=== PATIENT | male | born 1995 | race African-American/Black ===

== ENCOUNTER 2018-02-08 16:44 | Emergency (ER) | payer SELFPAY ==
--- NOTE | 2018-02-08 18:46 | ER ---
Nurse's Notes [facility] Name: Nazanin Burnett Age: 22 yrs Sex: Male : 1995 Arrival Date: 02/08/2018 Time: 16:49 Bed 17 Private MD: Diagnosis: Encounter for screening for infections with a predominantly sexual mode of transmission Presentation: 02/08 16:57 Presenting complaint: Patient states: i have abd pain (L lower quadrant) that started hj 12 noon today; last BM was yesterday; denies fever and chills; denies nausea and vomiting;. Transition of care: patient was not received from another setting of care. Onset of symptoms was February 08, 2018. Care prior to arrival: None. 16:57 Method Of Arrival: Ambulatory 16:57 Acuity: EDUARDO 3 hj Triage Assessment: 16:59 General: Appears in no apparent distress. uncomfortable, Behavior is calm, cooperative, hj appropriate for age. Pain: Complains of pain in left lower quadrant. GI: Reports lower abdominal pain. Historical: - Allergies: 16:59 No Known Allergies; hj - Home Meds: 16:59 None [Active]; hj - PMHx: 16:59 None; hj - PSHx: 16:59 None; hj - Immunization history:: Adult Immunizations up to date. - Social history:: Smoking status: Patient/guardian denies using tobacco. Screenin:30 Abuse screen: Denies threats or abuse. Denies injuries from another. Nutritional ch screening: No deficits noted. Tuberculosis screening: No symptoms or risk factors identified. Fall Risk None identified. Assessment: 16:59 GI: Bowel sounds present X 4 quads. Abd is soft Abdomen is tender to palpation. hj 19:32 Reassessment: Patient appears in no apparent distress at this time. Patient and/or ch family updated on plan of care and expected duration. Pain level reassessed. Patient is alert, oriented x 3, equal unlabored respirations, skin warm/dry/pink. General: Appears in no apparent distress. comfortable, Behavior is calm, cooperative, appropriate for age. Neuro: Level of Consciousness is awake, alert, obeys commands, Oriented to person, place, time, situation, Sales Marketing Manager are equal bilaterally. Respiratory: Airway is patent Respiratory effort is even, unlabored, Breath sounds are clear bilaterally. : Reports discharge, from penis that is. Derm: Skin is pink, warm \T\ dry. Musculoskeletal: Circulation, motion, and sensation intact. Capillary refill < 3 seconds, in bilateral fingers. toes. Range of motion: intact in all extremities. Vital Signs: 16:59 BP 155 / 67; Pulse 71; Resp 18; Temp 97.5(TE); Pulse Ox 96% on R/A; Weight 91.63 kg; hj Height 5 ft. 11 in. (180.34 cm); Pain 8/10; 18:30 BP 144 / 78; Pulse 65; Resp 18; Temp 98.2; Pulse Ox 99% on R/A; Pain 0/10; ch 16:59 Body Mass Index 28.17 (91.63 kg, 180.34 cm) ED Course: 16:49 Patient arrived in ED. mr 16:58 Triage completed. hj 16:59 Arm band placed on left wrist. 17:30 Car Maldonado PA is PHCP. cp 17:30 Car Gray MD is Attending Physician. cp 18:30 No apparent distress. Resting quietly. ch 18:30 Patient has correct armband on for positive identification. Bed in low position. Call light in reach. Side rails up X 1. 18:30 No provider procedures requiring assistance completed. Patient did not have IV access ch during this emergency room visit. 18:40 Jennifer Carrillo, RN is Primary Nurse. Administered Medications: 18:30 Drug: Rocephin (cefTRIAXone) 250 mg Route: IM; Site: right gluteus; 19:35 Follow up: Response: No adverse reaction 18:30 Drug: Zithromax 1 grams Route: PO; 19:35 Follow up: Response: No adverse reaction Outcome: 18:45 Discharge ordered by . cp 19:06 Patient left the ED. rg2 Signatures: Basia Bradford rg2 Jennifer Carrillo RN RN Denise Corrales Henry, RN RN Car Maldonado PA PA cp Corrections: (The following items were deleted from the chart) 16:58 16:57 Presenting complaint: Patient states: i have abd pain that started 12 noon today; hj last BM was yesterday; denies fever and chills; denies nausea and vomiting; hj
--- NOTE | 2018-02-08 18:46 | EDPHYS ---
Physician Documentation [facility] Name: Nazanin Burnett Age: 22 yrs Sex: Male : 1995 Arrival Date: 02/08/2018 Time: 16:49 Bed 17 Private MD: ED Physician Car Gray HPI: 02/08 17:50 This 22 yrs old Black Male presents to ER via Ambulatory with complaints of penile cp discharge. 17:50 The patient presents with symptoms include yellow penile discharge, with ejaculation, cp denies pain. Onset: The symptoms/episode began/occurred today. Associated signs and symptoms: Pertinent negatives: dysuria, fever, hematuria. 17:50 Patient reports history of chlamydia infection with treatment of himself and partner. cp Historical: - Allergies: 16:59 No Known Allergies; hj - Home Meds: 16:59 None [Active]; hj - PMHx: 16:59 None; hj - PSHx: 16:59 None; hj - Immunization history:: Adult Immunizations up to date. - Social history:: Smoking status: Patient/guardian denies using tobacco. ROS: 18:00 : Positive for penile discharge, Negative for urinary symptoms, penile pain, cp testicular pain 18:00 Constitutional: Negative for fever, chills, and weight loss. cp 18:00 All other systems are negative. Exam: 18:08 Constitutional: The patient appears in no acute distress, alert, awake, comfortable, cp non-toxic, well developed, well nourished. 18:08 Head/Face: Normocephalic, atraumatic. cp 18:08 Eyes: Periorbital structures: appear normal, Sclera: no appreciated abnormality, Lids and lashes: appear normal, bilaterally. 18:08 ENT: External ear(s): are unremarkable, Nose: is normal, Mouth: is normal, Posterior pharynx: is normal, airway is patent. 18:08 Chest/axilla: Inspection: normal. 18:08 Cardiovascular: Rate: normal, Rhythm: regular. 18:08 Respiratory: the patient does not display signs of respiratory distress, Respirations: normal, no use of accessory muscles, no retractions, no splinting, no tachypnea, labored breathing, is not present. 18:08 Abdomen/GI: Inspection: abdomen appears normal, Palpation: abdomen is soft and non-tender, in all quadrants. 18:08 : Male external genitalia: Patient is not circumisioned. lesion, of the head of penis, multiple, papular, nontender, Sexual behavior: the patient is sexually active. Vital Signs: 16:59 BP 155 / 67; Pulse 71; Resp 18; Temp 97.5(TE); Pulse Ox 96% on R/A; Weight 91.63 kg; hj Height 5 ft. 11 in. (180.34 cm); Pain 8/10; 18:30 BP 144 / 78; Pulse 65; Resp 18; Temp 98.2; Pulse Ox 99% on R/A; Pain 0/10; ch 16:59 Body Mass Index 28.17 (91.63 kg, 180.34 cm) hj MDM: 17:30 Patient medically screened. cp 18:45 Data reviewed: vital signs, nurses notes, and as a result, I will discharge patient. cp 18:45 Differential diagnosis: UTI, prostatitis, urethritis, STD. Counseling: I had a detailed cp discussion with the patient and/or guardian regarding: the historical points, exam findings, and any diagnostic results supporting the discharge/admit diagnosis, the need for outpatient follow up, a family practitioner, treatment of sexual partners. 02/08 17:44 Order name: GC (GONORR/CHLAMYDIA) Probe 02/08 19:02 Order name: Urine Dipstick--Ancillary (enter results) ag 02/08 18:28 Order name: Urine Dipstick-Ancillary (obtain specimen); Complete Time: 19:32 02/08 19:03 Order name: Urine Dipstick-Ancillary EDMS Administered Medications: 18:30 Drug: Rocephin (cefTRIAXone) 250 mg Route: IM; Site: right gluteus; ch 19:35 Follow up: Response: No adverse reaction ch 18:30 Drug: Zithromax 1 grams Route: PO; ch 19:35 Follow up: Response: No adverse reaction ch Disposition: 02/09 10:33 Co-signature as Attending Physician, Car Gray MD I agree with the assessment and hortencia plan of care. Disposition: 02/08/18 18:45 Discharged to Home. Impression: Encounter for screening for infections with a predominantly sexual mode of transmission. - Condition is Stable. - Discharge Instructions: Sexually Transmitted Disease, Health Maintenance, Males. - Medication Reconciliation Form, Thank You Letter, Antibiotic Education, Prescription Opioid Use form. - Follow up: Private Physician; When: 2 - 3 days; Reason: Recheck today's complaints. - Problem is new. - Symptoms are unchanged. Signatures: Dispatcher [employer] EDBasia Luna rg2 Jennifer Carrillo RN RN ch Anderson, Corey, MD MD cha Joaquin, Henry, RN RN hj Page, Corey, PA PA cp Corrections: (The following items were deleted from the chart) 17:44 04 17:50 This 22 yrs old Black Male presents to ER via Ambulatory with complaints of cp Abdominal Pain, Constipation. cp
[2018-02-08] MEDS ORDERED: AZITHROMYCIN 250 MG TAB ONE ×3 (19:08→19:18)
[2018-02-08] MEDS ORDERED: CEFTRIAXONE 250 MG/VIAL ONE (19:08)
[2018-02-08] MEDS ORDERED: LIDOCAINE 1% MPF 5 ML VIAL ONE (19:09)
[2018-02-08 19:36] LABS: Urine Blood NEGATIVE (NEG); Urine Glucose NEGATIVE (NEG); Urine Protein NEGATIVE (NEG); Urine Specific Gravity 1.025 (1.005-1.030); Urine pH 7.5 (5.0-7.0)
[2018-02-12 11:30] LABS: C.trachomatis RNA,TMA Not Detected (Not Detected)
== END 2018-02-08 19:06 | disposition home or self-care (01) ==
LOC: ER 16:44
DX: Z11.3 Encounter for screening for infections with a predominantly sexual mode of transmission (principal)
CPT/HCPCS: 81003; 87490; 87590; 96372; 99283; J0696